=== PATIENT | male | born 1965 | race Caucasian/White ===

== ENCOUNTER 2019-07-07 10:04 | Emergency (ER) | payer BC ==
[2019-07-07 10:46] VITALS: BP 128/73
--- NOTE | 2019-07-07 11:09 | UC ---
Skin Complaint HPI - HPI Summary HPI Summary: 54 yo male was fine last pm this am he work up with chills and bilateral tender inguinal LNs no wt loss - History of Current Complaint Chief Complaint: UCGeneralIllness Time Seen by Provider: 07/07/19 10:51 Stated Complaint: CHILLS SWELLING Hx Obtained From: Patient Onset/Duration: Sudden Onset Skin Exposure Onset/Duration: Hours Ago Onset Severity: Mild Current Severity: Mild Pain Intensity: 4 Pain Scale Used: 0-10 Numeric Location: Other - see HPI Character: Swelling, Painful Aggravating Factor(s): Touch Alleviating Factor(s): Nothing Associated Signs & Symptoms: Positive: Chills - Allergy/Home Medications Allergies/Adverse Reactions: Allergies Allergy/AdvReac Type Severity Reaction Status Date / Time ENVIRONMENTAL/HAYFEVER Allergy Unknown Uncoded 07/07/19 10:37 Reaction Details GRAPEFRUIT Allergy INTERACTS Uncoded 07/07/19 10:37 WITH SIMVASTATIN Home Medications: Home Medications Cetirizine* [ZyrTEC 10 MG TAB*] 10 mg PO DAILY 07/07/19 [History Confirmed 07/07] Fluticasone Furoate [Arnuity Ellipta] 100 mcg IH DAILY 07/07/19 [History Confirmed 07/07/19] PMH/Surg Hx/FS Hx/Imm Hx Previously Healthy: Yes Respiratory History: Asthma GI/ History: Other Other GI/ History: pyleo - Surgical History Surgical History: Yes Surgery Procedure, Year, and Place: vasectomy,knee scopes 10 yrs ago,appy, colonoscopy 2019 - Family History Known Family History: Positive: Hypertension - Social History Alcohol Use: Occasionally Substance Use Type: None Smoking Status (MU): Never Smoked Tobacco Review of Systems All Other Systems Reviewed And Are Negative: Yes Constitutional: Positive: Chills Skin: Positive: Negative Eyes: Positive: Negative ENT: Positive: Negative Respiratory: Positive: Negative Cardiovascular: Positive: Negative Gastrointestinal: Positive: Negative Genitourinary: Positive: Negative Motor: Positive: Negative Neurovascular: Positive: Negative Musculoskeletal: Positive: Negative Neurological: Positive: Negative Psychological: Positive: Negative Physical Exam Triage Information Reviewed: Yes Appearance: Well-Appearing, No Pain Distress, Well-Nourished Vital Signs: Initial Vital Signs Temp 100.1 F 07/07/19 10:39 Pulse 93 07/07/19 10:39 Resp 16 07/07/19 10:39 BP 128/73 07/07/19 10:39 Pulse Ox 96 07/07/19 10:39 Vital Signs Reviewed: Yes Eyes: Positive: Conjunctiva Clear ENT: Positive: Hearing grossly normal, TMs normal, Uvula midline. Negative: Nasal congestion, Nasal drainage, Tonsillar swelling, Tonsillar exudate, Trismus , Muffled voice, Hoarse voice, Dental tenderness, Sinus tenderness Dental Exam: Normal Neck: Positive: Supple, Nontender, No Lymphadenopathy - no cervical Lymphadenopathy Respiratory: Positive: Lungs clear, Normal breath sounds, No respiratory distress Cardiovascular: Positive: RRR, No Murmur Abdomen Description: Positive: Nontender, No Organomegaly, Soft. Negative: CVA Tenderness (R), CVA Tenderness (L), Distended Bowel Sounds: Positive: Present Male Genital Exam: Positive: Normal Genitalia, Inguinal Tenderness - bilateral inguinal adenopathy L>R Musculoskeletal: Positive: ROM Intact, No Edema Neurological: Positive: Alert Psychological Exam: Normal Skin Exam: Normal - Additional Comments no supraclavicular/axillary adenopathy Course/Dx - Diagnoses Provider Diagnosis: Inguinal adenopathy Discharge ED - Sign-Out/Discharge Documenting (check all that apply): Patient Departure All imaging exams completed and their final reports reviewed: No Studies - Discharge Plan Condition: Stable Disposition: HOME Patient Education Materials: Lymphadenopathy (ED) Referrals: Ramo Fung MD [Primary Care Provider] - 2 Weeks Additional Instructions: a blood count and mono test are pending recheck for new or worsening symptoms recheck with your MD in 2 weeks if glands still swollen heat ibuprofen - Billing Disposition and Condition Condition: STABLE Disposition: Home
[2019-07-07 13:19] LABS: ABS Eosinophils 0.1 10^3/ul (0-0.6); ABS Lymphocytes 1.8 10^3/ul (1.0-4.8); ABS Monocytes 0.8 10^3/ul (0-0.8); ABS Neutrophils 13.4 10^3/ul (1.5-7.7); Eosinophil % 0.3 %; Hematocrit 46 % (42-52); Hemoglobin 15.6 g/dL (14.0-18.0); Mean Corpuscular HGB Conc 34 g/dL (31-36); Mean Corpuscular Hemoglobin 30 pg (27-31); Mean Corpuscular Volume 90 fL (80-94); Mean Platelet Volume 8.8 fL (7.4-10.4); Nucleated Red Blood Cells % 0.1; Platelet Count 214 10^3/uL (150-450); Red Blood Count 5.15 10^6 /uL (4.18-5.48); Red Cell Distribution Width 13 % (10-15); White Blood Count 16.1 10^3/uL (3.5-10.8)
--- NOTE | 2019-07-08 06:57 | UC ---
- Progress Note Progress Note: Reveiwed CBC - elevated wbc, no bands mono neg please call pt - see how feeling recommend f/u with PCP this week for recheck if not improving Course/Dx - Diagnoses Provider Diagnoses: Inguinal adenopathy Discharge ED - Sign-Out/Discharge Documenting (check all that apply): Post-Discharge Follow Up All imaging exams completed and their final reports reviewed: No Studies - Discharge Plan Condition: Stable Disposition: HOME Patient Education Materials: Lymphadenopathy (ED) Referrals: Ramo Fung MD [Primary Care Provider] - 2 Weeks Additional Instructions: a blood count and mono test are pending recheck for new or worsening symptoms recheck with your MD in 2 weeks if glands still swollen heat ibuprofen - Billing Disposition and Condition Condition: STABLE Disposition: Home
== END 2019-07-07 11:28 | disposition home or self-care (01) ==
LOC: UCEAST 10:04
DX: R59.0 Localized enlarged lymph nodes (principal); J45.909 Unspecified asthma, uncomplicated; R68.83 Chills (without fever); Z91.09 Other allergy status, other than to drugs and biological substances; Z91.018 Allergy to other foods; Z79.51 Long term (current) use of inhaled steroids
CPT/HCPCS: 36415; 85025; 86308; 99211; G0463

== ENCOUNTER 2021-07-27 06:26 | Inpatient (IN) ==
[~2021-07-27 06:26] MED LIST: Buffered Lidocaine 1% SYRIN 1 ml INTRADERM ONE; Dexamethasone IV 4 MG/ML VIAL 1 ml VIAL IV SLOW PU ONE; Famotidine IV 10 MG/ML 2 ml VIAL (20 mg) IV ONE; Lactated Ringers 1000 ml BAG 1,000 ML IV SCH
[2021-07-27] MEDS ORDERED: Famotidine IV 10 MG/ML 2 ml VIAL (20 mg) ONE (06:54)
[2021-07-27] MEDS ORDERED: ceFAZolin 2 GM in NS PREMIX 2 GM/100 ML BAG IVPB ONE (06:54)
[2021-07-27] MEDS ORDERED: Dexamethasone IV 4 MG/ML VIAL 1 ml VIAL ONE (06:54)
[2021-07-27] MEDS ORDERED: Ropivacaine 5 MG/ML 20 ML VIAL 0.5% (100 MG) ONE (07:10)
[2021-07-27] MEDS ORDERED: fentaNYL 250 mcg/5 ml 50 MCG/ML 5 ml VIAL (250 MCG) ONE (07:32)
[2021-07-27] MEDS ORDERED: Lidocaine 2% PF 5 ML VIAL ONE (07:32)
[2021-07-27] MEDS ORDERED: Midazolam 2 mg/2 ml VIAL 1 mg/ml 2 ml VIAL (2 mg) ONE (07:32)
[2021-07-27] MEDS ORDERED: ROPIVACAINE 5 MG/ML 30 ML BTL (0.5%) ONE (07:34)
[2021-07-27] MEDS ORDERED: Magnesium Hydroxide LIQ 30 ML UDC PO PRN (08:56)
[2021-07-27] MEDS ORDERED: diPHENhydraMINE IV 50 MG/ML 1 ml VIAL (BENADRYL) IV PRN ×2 (08:56→10:40)
[2021-07-27] MEDS ORDERED: Morphine 2 MG/ML SYRINGE IV PRN (08:56)
[2021-07-27] MEDS ORDERED: diPHENhydraMINE 25 mg TAB PO PRN (08:56)
[2021-07-27] MEDS ORDERED: Ondansetron 4 mg VIAL 2 MG/ML 2 ml VIAL IV PRN ×2 (08:56→10:40)
[2021-07-27] MEDS ORDERED: Ondansetron ODT 4 mg TAB 4 MG TAB PO PRN (08:56)
[2021-07-27] MEDS ORDERED: Lactulose 30 ml UDC PO PRN (08:56)
[2021-07-27] MEDS ORDERED: Vitamin THERAPEUTIC TAB PO SCH (09:00)
[2021-07-27] MEDS ORDERED: Lactated Ringers 1000 ml BAG 1,000 ML IV SCH (09:00)
[2021-07-27] MEDS ORDERED: Magnesium Hydroxide LIQ 30 ML UDC PO SCH (09:00)
[2021-07-27] MEDS ORDERED: Levalbuterol HFA INHALER MDI INH PRN (09:03)
[2021-07-27] MEDS ORDERED: Propofol 10 MG/ML 20 ML BTL ONE (09:42)
[2021-07-27] MEDS ORDERED: Naloxone 0.4 mg VIAL 0.4 mg/ml 1 ml VIAL IV PRN (10:40)
[2021-07-27] MEDS ORDERED: HYDROmorphone 1 MG/1 ML SYRINGE IV PRN (10:40)
[2021-07-27 15:40] VITALS: BP 122/69
[2021-07-27] MEDS ORDERED: ceFAZolin 1 GM ADVAN 1 GM in NS 0.9% 50 ML 50 ML IVPB SCH (16:00)
[2021-07-27] MEDS ORDERED: Mometasone 220 MCG MDI INH SCH (19:00)
== END 2021-07-27 18:10 | disposition home health service (06) | DRG 302 ==
LOC: AA 06:26 → SSU 11:39
PROVIDERS: ADMIT Orthopaedic Surgery Adult Reconstructive Orthopaedic Surgery; ATTEND Orthopaedic Surgery Adult Reconstructive Orthopaedic Surgery

== ENCOUNTER 2024-01-30 07:10 | Observation (INO) ==
[2024-01-30] MEDS: Pantoprazole VIAL 40 MG VIAL IV ONE (08:26)
[2024-01-30 08:27] LABS: ABS Lymphocytes 1.3 10^3/uL (1.0-4.8); ABS Monocytes 0.6 10^3/uL (0.0-1.1); ABS Neutrophils 9.7 10^3/uL (1.5-7.6); ABS Nucleated RBC 0.01 10^3/ul; Eosinophil % 0.2 %; Hematocrit 39.5 % (38-53); Hemoglobin 13.6 g/dL (13.2-16.3); Lymphocyte % 11.4 %; Mean Corpuscular Hemoglobin 30.9 pg (27-33); Mean Corpuscular Hgb Conc 34.5 g/dL (31-36); Mean Corpuscular Volume 89.4 fL (80-97); Mean Platelet Volume 8.4 fL (7.5-11.2); Nucleated Red Blood Cells % 0.1 %/100WBC (0.0-0.8); Platelet Count 199 10^3/uL (150-450); Red Blood Count 4.41 10^6/uL (4.06-5.63); White Blood Count 11.7 10^3/uL (3.6-10.2)
[2024-01-30] MEDS: HYDROmorphone 0.5 MG/0.5 ML SYRINGE IV ONE ×2 (08:33→11:42)
[2024-01-30 08:46] LABS: INR 0.97 (0.83-1.13)
[2024-01-30] MEDS: Pantoprazole 80 mg in NS BAG 80 MG/250 ML BAG IV ONE (09:15)
[2024-01-30 09:22] LABS: Albumin 4.5 g/dL (3.2-5.2); Albumin/Globulin Ratio 2.1 (1-3); Calcium 9.3 mg/dL (8.6-10.3); Creatinine, Serum 0.8 mg/dL (0.67-1.17); Globulin 2.1 g/dL (2-4); Total Bilirubin 0.6 mg/dL (0.2-1.0); Total Protein 6.6 g/dL (6.4-8.9); eGFR CKD-EPI 101.3 (>60)
[2024-01-30] MEDS: Lactated Ringers 1000 ml BAG 1,000 ML IV ONE (10:45)
[2024-01-30] MEDS ORDERED: Morphine 2 MG/ML SYRINGE IV PRN ×2 (11:19→11:22)
[2024-01-30] MEDS ORDERED: Acetaminophen IV 1 GM/100ML 1,000 MG/100 ML BAG IV PRN (11:19)
[2024-01-30] MEDS: Acetaminophen IV 1 GM/100ML 1,000 MG/100 ML BAG IV ONE (11:26)
[2024-01-30] MEDS ORDERED: Senna TAB 8.6 mg TAB PO PRN (11:28)
[2024-01-30] MEDS ORDERED: HYDROmorphone 1 MG/1 ML SYRINGE IV PRN (11:28)
[2024-01-30] MEDS ORDERED: Polyethylene Glycol 3350 17 GM PACKET PO PRN (11:28)
[2024-01-30] MEDS ORDERED: Albuterol HFA INHALER 8 gm MDI INH PRN (11:34)
[2024-01-30] MEDS ORDERED: Dextrose 50% Syringe 50 ml 25 GM/50 ML SYRINGE IV PUSH PRN (11:44)
[2024-01-30 11:54] LABS: Phosphorus 2.9 mg/dL (2.5-5.0)
[2024-01-30] MEDS ORDERED: Lactated Ringers 1000 ml BAG 1,000 ML IV SCH ×3 (12:00→16:00)
[2024-01-30 12:11] LABS: Ferritin 162.4 ng/mL (24-336)
[2024-01-30 12:47] LABS: C Reactive Protein 3.39 mg/L (<8.01)
[2024-01-30] MEDS ORDERED: hydrALAZINE 20 mg/ml 1 ML Vial IV IV SLOW PU PRN (13:16)
[2024-01-30] MEDS: Lactated Ringers 1000 ml BAG 1,000 ML IV SCH (14:05)
[2024-01-30] MEDS: Morphine 2 MG/ML SYRINGE IV ONE (14:07)
[2024-01-30] MEDS: Ondansetron 4 mg VIAL 2 MG/ML 2 ml VIAL IV PRN (14:39)
[2024-01-30] MEDS ORDERED: Buffered Lidocaine 1% SYRIN 1 ml INTRADERM ONE ×2 (15:37→15:44)
[2024-01-30] MEDS ORDERED: Scopolamine 1 mg/72hr PATCH TRANSDERM ONE ×2 (15:37→15:44)
[2024-01-30] MEDS ORDERED: fentaNYL 100 mcg/2 ml 50 MCG/ML VIAL IV PRN (15:45)
[2024-01-30] MEDS ORDERED: Ondansetron 4 mg VIAL 2 MG/ML 2 ml VIAL IV PRN (15:45)
[2024-01-30] MEDS ORDERED: Metoclopramide 5 MG/ML VIAL (10 mg) IV PRN (15:45)
[2024-01-30] MEDS: HYDROmorphone 0.5 MG/0.5 ML SYRINGE IV PRN (15:49)
[2024-01-30] MEDS ORDERED: fentaNYL 100 mcg/2 ml 50 MCG/ML VIAL ONE (19:07)
[2024-01-30] MEDS ORDERED: Famotidine IV 10 MG/ML 2 ml VIAL (20 mg) ONE (19:07)
[2024-01-30] MEDS ORDERED: Ondansetron 4 mg VIAL 2 MG/ML 2 ml VIAL ONE (19:07)
[2024-01-30] MEDS: Pantoprazole VIAL 40 MG VIAL IV SCH (20:47)
[2024-01-31 05:13] LABS: ABS Basophils 0.1 10^3/uL (0.0-0.1); ABS Eosinophils 0.1 10^3/uL (0.0-0.5); ABS Monocytes 0.7 10^3/uL (0.0-1.1); ABS Neutrophils 8.3 10^3/uL (1.5-7.6); Eosinophil % 0.8 %; Hemoglobin 12.6 g/dL (13.2-16.3); Mean Corpuscular Hemoglobin 30.4 pg (27-33); Mean Corpuscular Hgb Conc 34.1 g/dL (31-36); Mean Corpuscular Volume 89.1 fL (80-97); Mean Platelet Volume 8.4 fL (7.5-11.2); Platelet Count 188 10^3/uL (150-450); Red Blood Count 4.15 10^6/uL (4.06-5.63); Red Cell Distribution Width 13.6 % (12-17); White Blood Count 11.1 10^3/uL (3.6-10.2)
[2024-01-31 05:50] LABS: Calcium 8.5 mg/dL (8.6-10.3); Creatinine, Serum 0.86 mg/dL (0.67-1.17); Potassium 3.8 mmol/L (3.5-5.0); eGFR CKD-EPI 99.1 (>60)
[2024-01-31] MEDS: Mometasone/Formoter 200/5 MDI INH SCH (07:24)
[2024-01-31 09:17] VITALS: BP 139/68
== END 2024-01-31 14:30 | disposition home or self-care (01) ==
LOC: EDHOLD 07:10 → ED 07:10 → SUATTDRO 10:05 → MED 11:24
PROVIDERS: ADMIT Internal Medicine; ATTEND Hospitalist
PROC: O.GIEGD (2024-01-30 15:05)